=== PATIENT | male | born 1940 | race Caucasian/White ===

== ENCOUNTER 2017-10-31 10:19 | Day surgery (SDC) | payer MEDICARE, OTHER ==
[2017-10-30 10:56] VITALS: BMI 26.2
--- NOTE | 2017-10-31 11:43 | OP ---
Operative Note - Note: Operative Date: 10/31/17 Pre-Operative Diagnosis: right thumb mass Operation: excsion of right thumb mass Findings: right thumb mass over A1 michael radial aspect. erossion into radial digital vein, heterogeneous mass in the cyst sack. digital nerve was preserved Implants: none Post-Operative Diagnosis: Same as Pre-op Surgeon: Omar Sykes Anesthesiologist/LUMBER MARKER: Shantel Chairez MD Anesthesia: General, Local (marcaine 0.5% 20ml) Estimated Blood Loss (mls): 2 Fluid Volume Replaced (mls): 500 Operative Report Dictated: Yes
[2017-10-31] MEDS ORDERED: PROPOFOL 20 ML ONE (12:24)
[2017-10-31] MEDS ORDERED: SUCCINYLCHOLINE CHLORIDE 200 MG/10 ML VIAL ONE (12:25)
[2017-10-31] MEDS ORDERED: MIDAZOLAM HCL 2 MG/2 ML SINGLE DOSE VIAL ONE (12:25)
[2017-10-31] MEDS ORDERED: ceFAZolin SODIUM 1 GM VIAL IVPB ONE (12:26)
[2017-10-31] MEDS ORDERED: ceFAZolin SODIUM 1 GM VIAL ONE (12:30)
[2017-10-31] MEDS ORDERED: BUPIVACAINE HCL/PF 0.5% (5MG/ML) 10 ML VIAL ONE (12:43)
[2017-10-31] MEDS ORDERED: BUPIVACAINE HCL/PF 0.5% (5MG/ML) 10 ML VIAL IJ ONE (12:44)
[2017-10-31] MEDS ORDERED: ONDANSETRON 4 MG/2 ML VIAL IVPUSH PRN (13:18)
[2017-10-31] MEDS ORDERED: LACTATED RINGERS SOLUTION 1,000 ML IV SCH (13:30)
[2017-10-31 13:38] VITALS: TEMP 98.4
[2017-10-31 14:46] VITALS: BP 142/65; PULSE 54
--- NOTE | 2017-11-01 11:44 | OP ---
DATE OF OPERATION: 10/31/2017 PREOPERATIVE DIAGNOSIS: Right thumb mass. POSTOPERATIVE DIAGNOSIS: Right thumb mass. PROCEDURE: Excisional biopsy of right thumb mass overlying the first annular michael. ATTENDING SURGEON: Omar Sykes MD PLUMBING CONTRACTOR: No one. ANESTHESIA: Shantel Chairez MD ESTIMATED BLOOD LOSS: 200 mL ANESTHESIA: Local and MAC. Local consisted of 0.5% Marcaine. A total of 20 mL was given in area block fashion. IMPLANTS: None. SPECIMEN: Right thumb mass. INDICATION: Patient is a 77-year-old male presenting with gradually enlarging right thumb mass of the first annular michael. He was noted to have no trauma in the area, history of a previous ganglion cyst on the back of the neck, which was removed. 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 He was counseled regarding risks, benefits, and alternatives of surgical procedure proposed, signed informed consent, and was taken for the procedure. DESCRIPTION OF PROCEDURE: Patient was brought to the operating room. He was placed in supine position on the operating table with the right arm extended at 90 degrees perpendicular to the body's axis. The right hand was prepped and draped into a standard surgical field. Patient had lower extremity SCDs placed. He was then sedated and supplemental oxygen provided. When stable, we proceeded with a formal timeout, identifying the operative site as right and the digit as the thumb. All parties in agreement. We proceeded first with inscribing of Arcelia incision over the maximum prominence of the volar mass of the right thumb over the first annular michael. It was a Arcelia incision. It was opened with a 15-blade scalpel after the tourniquet was inflated to a pressure of 250 mmHg. The incision was carried down through the subcutaneous pulp of the hand, through the superficial venous structures and fat with bipolar Bovie. It was dissected and appeared to be a cystic structure with hemorrhagic cystic fluid inside. It was dissected at all aspects. There was some erosion of venous branches. It looked like the digital vein for the thumb on the radial aspect was involved in the cyst. It might have eroded. At any rate, the cyst was dissected of all aspects and carefully dissected away from the radial digital nerve of the thumb. It was preserved, although it was stretched in the dissection. Care was taken to completely dissect structures from all aspects. It was then taken at its origin which appeared to be on the flexor sheath or the flexor pollicis tendon for the thumb. The first annular michael was kept intact. The flexor mechanism easily uninvolved in the process. The site was debrided of synovitis. The cyst as well as the contents of the cyst was sent for pathologic diagnosis. The contents of the cyst appeared green and heterogeneous, uncertain as to what it might be. The hemorrhagic fluid was irrigated from the field. Once complete, the neurovascular structures were returned to the anatomic position. The Arcelia incision was then closed at the skin with an interrupted 4-0 nylon along its length. It was then dressed with Xeroform and fluff gauze and Coban. Tourniquet was relieved, and the fingers returned to a normal pink state. The patient was returned to Recovery in stable condition, after tolerating the procedure well. Counts were correct. MD ELENA Tarango/[id number]
--- NOTE | 2017-11-03 12:37 | PATH ---
Surgical Pathology Report Patient Name: ABRAHAM CARLTON [facility]. Rec. #: [id number] /Age/Gender: 1940 (Age: 77) / M Account: [id number] Location: [facility] SURGICAL Taken: 10/31/2017 Received: 10/31/2017 Reported: 11/03/2017 Physicians: Omar Sykes M.D. Specimen(s) Received MASS OF RIGHT THUMB Clinical History Ganglion cyst right thumb Final Diagnosis THUMB MASS, RIGHT, EXCISION: BENIGN DENSE FIBROCONNECTIVE TISSUE CONSISTENT WITH CYST WALL IN HEMORRHAGIC BACKGROUND. Electronically Signed Dang Adames M.D. Gross Description Received in formalin labeled "right thumb mass," are 2 frost hernandez portions of soft tissue measuring 1.2 x 0.7 x 0.4 cm and 1.6 x 0.9 x 0.1 cm. One of the portions is bisected and the specimen is entirely submitted in one cassette. /10/31/201710/31/2017
== END 2017-10-31 14:48 | disposition home or self-care (01) ==
LOC: JASU-SURG 10:19
PROC: 0LB70ZZ Excision of Right Hand Tendon, Open Approach (ICD-10-PCS; principal; 2017-10-31 12:00)
DX: M67.442 Ganglion, left hand (principal)
CPT/HCPCS: 88304-TC

== ENCOUNTER 2022-06-14 05:32 | Day surgery (SDC) | payer MEDICARE ==
[2022-06-13 09:49] VITALS: BMI 27.8
[2022-06-14 12:51] VITALS: TEMP 97
[2022-06-14 13:12] VITALS: RESP 18
[2022-06-14 14:28] VITALS: BP 173/64; PULSE 68
== END 2022-06-14 13:35 | disposition home or self-care (01) ==
LOC: JASU-ENDO 05:32
PROVIDERS: ATTEND Internal Medicine Gastroenterology
PROC: 0DBL8ZX Excision of Transverse Colon, Via Natural or Artificial Opening Endoscopic, Diagnostic (ICD-10-PCS; 2022-06-14)
PROC: 0DB68ZX Excision of Stomach, Via Natural or Artificial Opening Endoscopic, Diagnostic (ICD-10-PCS; 2022-06-14)
PROC: 0DB98ZX Excision of Duodenum, Via Natural or Artificial Opening Endoscopic, Diagnostic (ICD-10-PCS; 2022-06-14)
PROC: 0DB78ZX Excision of Stomach, Pylorus, Via Natural or Artificial Opening Endoscopic, Diagnostic (ICD-10-PCS; 2022-06-14)
PROC: 0DB48ZX Excision of Esophagogastric Junction, Via Natural or Artificial Opening Endoscopic, Diagnostic (ICD-10-PCS; 2022-06-14)
PROC: 0DBK8ZX Excision of Ascending Colon, Via Natural or Artificial Opening Endoscopic, Diagnostic (ICD-10-PCS; principal; 2022-06-14 12:00)
DX: Z12.11 Encounter for screening for malignant neoplasm of colon (principal); D12.2 Benign neoplasm of ascending colon; D12.3 Benign neoplasm of transverse colon; D12.8 Benign neoplasm of rectum; K29.50 Unspecified chronic gastritis without bleeding; K21.00 Gastro-esophageal reflux disease with esophagitis, without bleeding; K31.89 Other diseases of stomach and duodenum; K57.30 Diverticulosis of large intestine without perforation or abscess without bleeding; K31.7 Polyp of stomach and duodenum; A63.0 Anogenital (venereal) warts; Z86.010 Personal history of colon polyps; Z80.0 Family history of malignant neoplasm of digestive organs
CPT/HCPCS: 88305-TC; 88342-TC